=== PATIENT | male | born 1945 | race Caucasian/White ===

== ENCOUNTER 2023-04-08 11:18 | Emergency (ER) | payer OTHER, SELFPAY ==
[2023-04-08 11:19] VITALS: BP 141/83; PULSE 103; RESP 18; TEMP 35.9; O2SAT 98; BMI 33.2
--- NOTE | 2023-04-08 11:55 | RAD_ITS ---
STUDY: X-RAY - PELVIS AND LEFT HIP REASON FOR EXAM: Male, 78 years old. pain TECHNIQUE: 3 views of the pelvis and hip. COMPARISON: None. FINDINGS: There is a non-specific bowel gas pattern. Normal visualized soft tissue structures. There is narrowing with cortical sclerosis and osteophyte formation of the sacroiliac joint consistent with degenerative osteoarthritic changes. Normal bilateral superior and inferior pubic rami. Normal pubic symphysis. Normal bilateral ischial tuberosities. Normal visualized femoral head. Normal acetabulum. There is mild articular joint space narrowing of the hip. Similar arthritic changes noted in the right hip. RAD/HIP, UNI W/ Pelvis 2-3 Views IMPRESSION: Age consistent hip and SI joint arthrosis. No demonstrated fracture or suspicious osseous lesion. However, hip and pelvic fractures in patients of this age can be subtle, if there is strong clinical suspicion of a fracture, recommend further evaluation with CT Electronically Signed: Rajeev Cobos MD at 12:20 EDT ,
--- NOTE | 2023-04-08 11:59 | EX.ED.DYSGE1 ---
HPI History of Present Illness Chief Complaint: Lower Extremity Injury Detail of Chief Complaint: Left hip pain Informant: patient Onset/Context/Timing Onset: Days Context: Gradual Onset Timing: Waxes and wanes Current Severity: Mild Maximum Severity: Moderate Narrative Narrative: Patient presents secondary to left hip pain. He states a couple days ago he noted pain along the lateral aspect of his left hip with sharp pain shooting down his thigh. He is more comfortable when sitting and more painful when lying flat or standing. He had a similar episode in July but states he had definite injury at that time. Pain subsided after a few days. He contacted his [place] because this is the second time it occurred they felt he should come in for x-rays. He denies any injury at the time of this injury. [facility] Medical History Diabetes High cholesterol HTN (hypertension) Home Medications atorvastatin 40 mg tablet 40 mg PO DAILY 04/30/21 [History Last Taken Unknown] calcium carbonate 500 mg-vitamin D3 5 mcg (200 unit) tablet (Calcium 500 + D) 1 tab PO DAILY 04/30/21 [History Last Taken Unknown] metformin 500 mg tablet 500 mg PO BID 04/30/21 [History Last Taken Unknown] multivitamin (Multiple Vitamins tablet) 1 tab PO DAILY 04/30/21 [History Last Taken Unknown] prednisone 20 mg tablet 40 mg (2 x 20 mg) PO DAILY #8 tabs 04/08/23 [Rx Last Taken Unknown] Allergy/AdvReac Type Severity Reaction Status Date / Time No Known Allergies Allergy Verified 04/08/23 11:19 Family History Father Diabetes Hypertension Son Diabetes Mother Hypertension Diabetes Social History household members: none housing: house Smoking Status: Never smoker alcohol intake: never what type of physical activity do you participate in: walking do you feel safe at home: Yes ROS ROS ED Constitutional Constitutional ED: Denies chills or fever(s) ENT ENT ED: Denies rhinorrhea or sore throat Cardiovascular Cardiovascular: Denies chest pain Respiratory/Chest Respiratory/Chest: Denies cough or dyspnea Gastrointestinal Gastrointestinal: Denies abdominal pain, nausea or vomiting Genitourinary Genitourinary ED: Denies dysuria Musculoskeletal Musculoskeletal: Reports extremity pain; Denies back pain Integumentary Denies Abrasions or rash Neurologic Neurologic: Denies headache(s), paresthesias or weakness Psychiatric Psychiatric: Denies anxiety or depression Allergic/Immunologic Allergic/Immunologic ED: Denies lip swelling or urticaria EXAM Physical Exam Const Vital Signs: 04/08/23 11:19 Temperature 96.7 F L Temperature Source Temporal Pulse Rate 103 H Respiratory Rate 18 Blood Pressure 141/83 H Blood Pressure Mean 102 Pulse Ox 98 Oxygen Delivery Method Room Air Positive well nourished and well developed General Appearance ED: well developed HEENT Reports normocephalic and head/scalp atraumatic Eyes PERRL and EOMs intact bilaterally Neck supple Chest Wall inspection of chest normal and palpation of chest normal Resp normal respiratory effort and clear to auscultation bilaterally Cardio regular rate and regular rhythm GI normal to inspection, nondistended, normoactive bowel sounds Palpation: soft Extremity Extremity Narrative: Producible tenderness of the greater trochanter of the left hip. No tenderness along the posterior pelvis. Strong distal pulses with good range of motion. Normal sensation. Neuro oriented x3 and no sensory deficits noted Sensorium / Orientation: alert Motor Exam: strength 5/5 throughout Psych mental status grossly normal Skin no rashes or lesions noted MDM MDM MDM Narrative Medical decision making narrative: Hip/pelvis x-rays ordered to evaluate for fracture, bony abnormality. Radiography Diagnostic Testing: Clinical Impression(s) from Imaging Studies Hip/Pelvis X-Ray 04/08/23 11:55 IMPRESSION: Age consistent hip and SI joint arthrosis. No demonstrated fracture or suspicious osseous lesion. However, hip and pelvic fractures in patients of this age can be subtle, if there is strong clinical suspicion of a fracture, recommend further evaluation with CT Electronically Signed: Rajeev Cobos MD at 12:20 EDT , Treatment and Re-Evaluation :: Pelvis and left hip x-rays per my interpretation reveal no acute bony abnormality. Radiology interpretation is reviewed. Patient does have some arthritic changes but no suspicious osseous lesion. Patient be given a short course of prednisone to help with inflammation and pain. He was advised that his blood sugars will go up for a few days while he is taking this. He voices understanding and agreement. Return instructions provided. Discharge Plan Triage Chief Complaint: Lower Extremity Injury ED Provider: Dyana Lopez Dx/Rx/DC Orders Clinical Impression: Sciatica, Arthritis of left hip Instructions: ED Osteoarthritis, ED Sciatica Prescriptions: New prednisone 20 mg tablet 40 mg PO DAILY Qty: 8 0RF No Action metformin 500 mg tablet 500 mg PO BID atorvastatin 40 mg tablet 40 mg PO DAILY calcium carbonate-vitamin D3 [Calcium 500 + D] 500 mg(1,250mg) -200 unit tablet 1 tab PO DAILY multivitamin [Multiple Vitamins] Tablet 1 tab PO DAILY [facility] [Primary [facility] Provider] - 1 Week if not improving Disposition Disposition: Home, Self Care
[2023-04-08] MEDS: predniSONE 20 MG Tablet 40 MG PO (12:59)
== END 2023-04-08 13:01 | disposition home or self-care (01) ==
PROVIDERS: Emergency Provider Emergency Medicine; Visit Provider Emergency Medicine
DX: M16.12 Unilateral primary osteoarthritis, left hip (principal); E11.9 Type 2 diabetes mellitus without complications; E78.00 Pure hypercholesterolemia, unspecified; M54.32 Sciatica, left side; I10 Essential (primary) hypertension; Z79.84 Long term (current) use of oral hypoglycemic drugs; Z79.899 Other long term (current) drug therapy
CPT/HCPCS: 73502; 99283